=== PATIENT | female | born 2000 | race Two or more races ===

== ENCOUNTER 2018-03-02 20:33 | Emergency (ER) | payer MEDICAID ==
[2018-03-02] MEDS ORDERED: MORPHINE SULFATE IR 15 MG TABLET PO ONE ×2 (20:57→21:35)
[2018-03-02] MEDS ORDERED: ACETAMINOPHEN 325 MG TABLET PO ONE (20:57)
[2018-03-02] MEDS ORDERED: IBUPROFEN 600 MG TABLET PO ONE (20:57)
--- NOTE | 2018-03-02 21:02 | RADIOLOGY REPORT (SQ) ---
EXAM DESCRIPTION: WRIST RIGHT 3 VIEWS COMPLETED DATE/TIME: 03/02/2018 8:51 pm REASON FOR STUDY: Pain R wrist after fall from horse COMPARISON: None. NUMBER OF VIEWS: Three views. TECHNIQUE: AP, lateral, and oblique radiographic images acquired of the right wrist. LIMITATIONS: None. FINDINGS: MINERALIZATION: Normal. BONES: Comminuted fracture of the distal radius with mild impaction. Ulnar styloid fracture. Radioc arpal alignment remains in normal. No intra-articular extension. SOFT TISSUES: No soft tissue swelling. No foreign body. OTHER: No other significant finding. IMPRESSION: Comminuted distal radial fracture without intra-articular extension. Ulnar styloid frac ture. TECHNICAL DOCUMENTATION: JOB ID: [id number] [employer]- All Rights Reserved Reading location - IP/workstation name: [email or web address]
--- NOTE | 2018-03-02 21:40 | ER Document Report ---
ED General - General Chief Complaint: Wrist Injury Stated Complaint: HURT WRIST Time Seen by Provider: 03/02/18 20:56 Notes: Patient is a 17-year-old female with past medical history of insulin-dependent type 1 diabetes who presents after falling onto an outstretched hand after falling off a horse. She does also apparently strike her head but was wearing a helmet. She states that immediately after landing on her wrist she developed a severe, constant, throbbing pain to the wrist that has been ongoing since that time. Any attempt at moving the wrist dramatically worsens the pain. Nothing improves the pain. No history of similar injuries in the past. She is left-hand dominant. She denies any focal weakness, numbness, vomiting or confusion. She does not take any form of anticoagulation. She has not seen her general doctor regarding today's concerns. TRAVEL OUTSIDE OF THE [place] IN LAST 30 DAYS: No Past Medical History - General Information source: Patient, Parent - Social History Smoking Status: Never Smoker Frequency of alcohol use: None Drug Abuse: None Lives with: Parents Family History: Reviewed & Not Pertinent Patient has suicidal ideation: No Patient has homicidal ideation: No Renal/ Medical History: Denies: Hx Peritoneal Dialysis Review of Systems - Review of Systems Notes: Constitutional: Negative for fever. Eyes: Negative for visual changes. ENT: Negative for facial injury Cardiovascular: Negative for chest injury. Respiratory: Negative for shortness of breath. Gastrointestinal: Negative for abdominal injury. Genitourinary: Negative for genital injury Musculoskeletal: Positive for right wrist injury. Skin: Negative for laceration/abrasions. Neurological: Positive for head injury. Physical Exam - Vital signs Vitals: Temp Pulse BP Pulse Ox 98.1 F 82 133/82 H 100 03/02/18 20:52 03/02/18 20:52 03/02/18 20:52 03/02/18 20:52 Interpretation: Normal Notes: PHYSICAL EXAMINATION: GENERAL: Appears to be in pain, somewhat tearful HEAD: Atraumatic, normocephalic. EYES: Pupils equal round and reactive to light, extraocular movements intact, sclera anicteric, conjunctiva are normal. ENT: nares patent, no oral pharyngeal trauma. No hemotympanum, no De Los Santos's sign , no raccoon eyes. NECK: No midline cervical spine tenderness. Patient able to move their head to 45 bilaterally without any discomfort. LUNGS: Breath sounds clear to auscultation bilaterally and equal. No wheezes rales or rhonchi. HEART: Regular rate and rhythm without murmurs. CHEST WALL: No ecchymosis over the chest wall. ABDOMEN: Soft, nontender, normoactive bowel sounds. No guarding, no rebound. No abdominal bruising EXTREMITIES: Extremity examination unremarkable with exception of the right wrist where the patient is unable to perform range of motion. There is obvious swelling but no deformity to the area. RMU motor and sensory distribution is intact. Full flexion and extension against resistance in all digits of the right hand. BACK: No midline spinal tenderness, step-offs, or deformities. NEUROLOGICAL: Face symmetric. Tongue protrudes midline. Extraocular motions intact. Pupils are 2 mm and equally reactive. Normal speech, normal gait. 5 out of 5 strength in both the distal and proximal upper and lower extremities bilaterally. Sensation is grossly intact throughout. Finger to nose testing normal. Pronator drift normal. PSYCH: Moderately anxious, tearful SKIN: Warm, Dry, normal turgor, no rashes or lesions noted. Course - Re-evaluation Re-evalutation: 03/02/18 21:38 Patient presents after falling off of a horse onto an outstretched right hand sustaining a distal radius fracture without displacement. No evidence of neurovascular compromise. RMU motor and sensory distribution is intact. Patient was wearing a helmet but did strike her head. No focal neurologic deficits on exam, no evidence of basilar skull fracture on exam without evidence of hemotympanum, raccoon eyes, or periauricular hematoma. No papilledema. Patient is not on anticoagulation. GCS is 15. No loss of consciousness. No episodes of vomiting. Patient is therefore negative via [place] head CT criteria and CT imaging will not be obtained at this time. Patient also evaluated by nexus criteria and found to be negative. Patient is also negative by [place] C-spine criteria. No clinical evidence to suggest increased risk of cervical spine fracture. No indication for imaging of the cervical spine. Outside of the right wrist, extremity examination is otherwise unremarkable. Chest and abdominal exam are benign without any focal tenderness , shortness of breath, or bruising over the chest or abdominal wall. Patient has no flank tenderness. There is no obvious findings on trauma exam today and therefore no further imaging or evaluation will be obtained at this time. Patient has been placed in a sugar tong splint. I have instructed her to follow -up with orthopedic surgery within the next 5-7 days. At this time will discharge with return precautions and follow-up recommendations. Verbal discharge instructions given a the bedside and opportunity for questions given. Medication warnings reviewed. Patient is in agreement with this plan and has verbalized understanding of return precautions and the need for primary care follow-up in the next 24-72 hours. - Vital Signs Vital signs: Temp Pulse Resp BP Pulse Ox 98.7 F 78 18 125/75 98 03/02/18 22:00 03/02/18 22:00 03/02/18 22:00 03/02/18 22:00 03/02/18 22:00 - Diagnostic Test Radiology reviewed: Image reviewed, Reports reviewed Radiology results interpreted by me: 03/02/18 21:39 Right wrist: Distal radius fracture without displacement. Ulnar styloid fracture Procedures - Immobilization Right Wrist Pre-Proc Neuro Vasc Exam: Normal Immobilizer type: Sugar tong Performed by: Provider assisted Post-Proc Neuro Vasc Exam: Normal Alignment checked and good: Yes Discharge - Discharge Clinical Impression: Fall off of horse Fracture of right distal radius Qualifiers: Encounter type: initial encounter Fracture type: closed Fracture morphology: unspecified fracture morphology Qualified Code(s): S52.501A - Unspecified fracture of the lower end of right radius, initial encounter for closed fracture Fracture of ulnar styloid Qualifiers: Encounter type: initial encounter Fracture type: closed Fracture alignment: nondisplaced Laterality: right Qualified Code(s): S52.614A - Nondisplaced fracture of right ulna styloid process, initial encounter for closed fracture Condition: Good Disposition: HOME, SELF-CARE Additional Instructions: You have a break in your distal radius bone on the right side. You have been placed in a splint to stabilize the fracture but will need to follow-up with orthopedic surgery for definitive care. Please contact the listed orthopedic surgeon tomorrow to schedule an appointment for within next 5-7 days. Please return to the emergency department if you develop discoloration of your hand, inability to feel your fingers, worsening pain, fever of greater than 100.4F, or any other symptoms that are worrisome to you. For your pain: Take ibuprofen 600 mg and acetaminophen 1000 mg every 6 hours together as needed for pain. If this does not control your pain you may take 15 mg of oral morphine every 4 hours as needed. Please be very careful about using the oral morphine and only use this for severe pain. Prescriptions: Morphine Sulfate [Morphine Ir 15 mg Tablet] 15 mg PO Q6HP PRN #8 tablet PRN Reason: Referrals: KUSH SNOWDEN DO [ACTIVE STAFF] - Follow up in 3-5 days
[2018-03-02 22:11] VITALS: BP 125/75
== END 2018-03-02 22:11 | disposition home or self-care (01) ==
LOC: ER 20:33
PROC: 2W3CX1Z Immobilization of Right Lower Arm using Splint (ICD-10-PCS; principal; 2018-03-02)
DX: S52.501A Unspecified fracture of the lower end of right radius, initial encounter for closed fracture (principal); S52.614A Nondisplaced fracture of right ulna styloid process, initial encounter for closed fracture; S09.90XA Unspecified injury of head, initial encounter; V80.010A Animal-rider injured by fall from or being thrown from horse in noncollision accident, initial encounter; Y93.52 Activity, horseback riding; E10.9 Type 1 diabetes mellitus without complications; Z79.4 Long term (current) use of insulin
CPT/HCPCS: 99283; 73110; 29125; J3490 ×2